=== PATIENT | male | born 1985 | race Caucasian/White ===

== ENCOUNTER 2016-09-11 11:03 | Emergency (ER) | payer SELFPAY ==
[~2016-09-11] VITALS: Ht 175.3 cm; Wt 122.5 kg
[2016-09-11 11:06] VITALS: BP 177/102; PULSE 128; RESP 24; TEMP 98.1; O2SAT 99
[2016-09-11] MEDS ORDERED: METO25TA3 PO ×2 (11:22→11:59)
--- NOTE | 2016-09-11 11:58 | PD ---
HPI Chief Complaint: Oral / Dental Pain or Problem Time Seen by Provider: 11:46 Travel History International Travel<30 days: No Contact w/Intl Traveler<30days: No Traveled to known affect area: No History of Present Illness HPI 31-year-old male presents for is part with worsening left facial and jaw pain over the past week and a half. Patient denies any fever, chills, rash , or other symptoms. He has no sore throat. He has no sensitivity to hot and cold with his dental issues. He has no difficulty swallowing. Patient has history of TMJ in the past. Patient states his pain is worse with opening his mouth wide, chilling, and it at night. He's tried [id number]-[id number] medications without improvement. He states his pain is 8 out of 10 currently. He is allergic to penicillin. [facility] Social History Alcohol Use: Yes Tobacco Use: No Substance Use: No Allergies-Medications (Allergen,Severity, Reaction): Coded Allergies: Penicillin (Verified Allergy, Severe, Swelling, 09/11/16) Reported Meds & Prescriptions Reported Meds & Active Scripts Active Reported Metoprolol Tartrate 25 Mg Tab 25 Mg PO BID Review of Systems Except as stated in HPI: all other systems reviewed are Neg General / Constitutional: No: Fever Eyes: No: Visual changes HENT: Positive: Dental Difficulties, No: Headaches Cardiovascular: No: Chest Pain or Discomfort Respiratory: No: Shortness of Breath Gastrointestinal: No: Abdominal Pain Genitourinary: No: Dysuria Musculoskeletal: No: Pain Skin: No Rash Neurologic: No: Weakness Psychiatric: No: Depression Endocrine: No: Polydipsia Hematologic/Lymphatic: No: Easy Bruising Physical Exam Narrative GENERAL: Patient appears in no acute distress. SKIN: Warm and dry. Normal color. Normal turgor. HEAD: Atraumatic. Normocephalic. Patient has tender left TMJ with audible and palpable click. This reproduces his symptoms. EYES: Pupils equal and round. No scleral icterus. No injection or drainage. ENT: No nasal bleeding or discharge. Mucous membranes pink and moist. Teeth are in good repair. Pharynx is normal. No erythema or swelling. Uvula is midline. No obvious signs of dental abscess noted. NECK: Trachea midline. Supple and nontender without significant lymphadenopathy. CARDIOVASCULAR: Regular rate and rhythm. RESPIRATORY: No accessory muscle use. Clear to auscultation. Breath sounds equal bilaterally. MUSCULOSKELETAL: Extremities without clubbing, cyanosis, or edema. No obvious deformities. NEUROLOGICAL: Awake and alert. No obvious cranial nerve deficits. Motor grossly within normal limits. Five out of 5 muscle strength in the arms and legs. Normal speech. PSYCHIATRIC: Appropriate mood and affect; insight and judgment normal. Data Data Last Documented VS Vital Signs Date Time Temp Pulse Resp B/P Pulse Ox O2 Delivery O2 Flow Rate FiO2 09/11/16 11:06 98.1 128 24 177/102 99 Room Air MDM Medical Decision Making Medical Screen Exam Complete: Yes Emergency Medical Condition: Yes Differential Diagnosis Dental pain. Ear infection. TMJ. Early shingles. Narrative Course The patient is felt to have TMJ on the left. Patient is given prednisone 20 mg twice a day 7 days. Patient is given Flexeril 10 mg daily at bedtime #30. Patient is given tramadol 50 mg one every 6 hours when necessary pain #20. Patient is given a refill of his lisinopril 20 mg daily #30. Patient is given a refill of his metoprolol 25 mg daily #30. Patient is to follow-up with a local primary care physician and dentist as discussed. Diagnosis Primary Impression: Disorder of left temporomandibular joint Referrals: [facility] Dentist Patient Instructions: General Instructions, Temporomandibular Disorder (DC) Additional Instructions: The patient is felt to have TMJ on the left. Patient is given prednisone 20 mg twice a day 7 days. Patient is given Flexeril 10 mg daily at bedtime #30. Patient is given tramadol 50 mg one every 6 hours when necessary pain #20. Patient is given a refill of his lisinopril 20 mg daily #30. Patient is given a refill of his metoprolol 25 mg daily #30. Patient is to follow-up with a local primary care physician and dentist as discussed. Med/Other Pt SpecificInfo: Prescription(s) given Disposition: 01 DISCHARGE HOME Condition: Stable Roberto Carlos Tabor Sep 11, 2016 11:58
[2016-09-11] MEDS ORDERED: LISI-515 PO (11:59)
[2016-09-11] MEDS ORDERED: TRAM50TA PO (11:59)
[2016-09-11] MEDS ORDERED: CYCL1TAB29 PO (11:59)
[2016-09-11] MEDS ORDERED: PRED20 PO (11:59)
== END 2016-09-11 12:08 | disposition home or self-care (01) ==
LOC: NEPK 11:03
DX: M26.622 Arthralgia of left temporomandibular joint (principal); M26.69 Other specified disorders of temporomandibular joint
CPT/HCPCS: 99284

== ENCOUNTER 2017-03-14 16:04 | Emergency (ER) | payer SELFPAY ==
[~2017-03-14] VITALS: Ht 177.8 cm; Wt 120.3 kg
[~2017-03-14 16:04] MED LIST: CYCL10TA PO; LISI-515 PO; METO25TA3 PO; PRED20 PO; TRAM50TA PO
[2017-03-14 16:09] VITALS: BP 174/94; PULSE 103; RESP 16; TEMP 98.2; O2SAT 97
--- NOTE | 2017-03-14 16:20 | PD ---
HPI Chief Complaint: Cold / Flu Symptoms Time Seen by Provider: 16:14 Travel History International Travel<30 days: No Contact w/Intl Traveler<30days: No Traveled to known affect area: No History of Present Illness HPI Patient comes in complaining of cough and congestion that began approximately 2 days ago. Patient reports associated fever and some nausea. Patient reports taking Tylenol for this last dose was yesterday. Denies anything making it worse. Patient reports cough is occasionally productive with yellow phlegm. Denies any chest pain, shortness of breath, abdominal pain, vomiting, diarrhea, neck pain, or loss change in bowel or bladder. PFSH Past Medical History Hypertension: Yes Social History Alcohol Use: Yes Tobacco Use: Yes Substance Use: No Allergies-Medications (Allergen,Severity, Reaction): Coded Allergies: penicillin G (Unverified Allergy, Severe, Swelling, 03/14/17) Reported Meds & Prescriptions Reported Meds & Active Scripts Active Tessalon Perles (Benzonatate) 100 Mg Cap 200 Mg PO TID PRN Ventolin Hfa 18 GM Inh (Albuterol Sulfate) 90 Mcg/Act Aer 2 Puff INH Q4-6H PRN Review of Systems Except as stated in HPI: all other systems reviewed are Neg Physical Exam Narrative GENERAL: Well-developed, overly nourished, in no acute distress, and non-ill appearing. SKIN: Focused skin assessment warm and dry. HEAD: Atraumatic. Normocephalic. EYES: Pupils equal and round. EOMI. No scleral icterus. No injection or drainage. ENT: No nasal bleeding or discharge. Mucous membranes pink and moist. Tympanic membranes pearly piña bilaterally. Posterior pharynx nonerythematous without exudate. Uvula is midline. No tenderness to facial sinuses to palpation. NECK: Trachea midline. No cervical lymphadenopathy. Supple. No nuclear rigidity. CARDIOVASCULAR: Regular rate and rhythm. No murmur appreciated. RESPIRATORY: No accessory muscle use. No respiratory distress. Clear to auscultation. Breath sounds equal bilaterally. MUSCULOSKELETAL: No obvious deformities. No clubbing. No cyanosis. No edema. Full range of motion. NEUROLOGICAL: Awake and alert. No obvious cranial nerve deficits. Motor grossly within normal limits. Normal speech. PSYCHIATRIC: Appropriate mood and affect; insight and judgment normal. Data Data Last Documented VS Vital Signs Date Time Temp Pulse Resp B/P (MAP) Pulse Ox O2 Delivery O2 Flow Rate FiO2 03/14/17 16:09 98.2 103 16 174/94 (120) 97 Orders Orders Influenzae A/B Antigen (03/14/17 16:17) Chest, Single Ap (03/14/17 ) Ed Discharge Order (03/14/17 16:52) MDM Medical Decision Making Medical Screen Exam Complete: Yes Emergency Medical Condition: Yes Differential Diagnosis Influenza, pneumonia, bronchitis, URI, viral syndrome Narrative Course Patients symptom complex of cough and congestion is consistent with viral URI. The patient is non-ill appearing and is in no respiratory distress and comfortable. The patient moves air well and oxygen saturations are normal. There is no clinical evidence to suggest pneumonia at this time. Plan of care and management were discussed with the patient who agreed with plan. The patient was instructed to follow up with their physician and instructed to return if worsens, progressively worsening shortness of breath or difficulty breathing, persistent fever, chest pains or discomfort, inability to keep medication or fluids down with or without vomiting, or as needed. Patient in no obvious distress upon re-evaluation. All pertinent laboratory/ Radiology result(s) discussed with patient. Patient was asked if they wanted to speak to my attending, which the patient did not wish to do at this time. Any questions/concerns in reference to patient diagnosis/condition discussed and clarified prior to patient's discharge. Reinforced sheer importance of close follow up with patient's primary physician or primary care clinic. Instructed patient to return to ED immediately, if symptoms return/worsen. Patient showed understanding of above instructions. Further instructions and recommendations were detailed in discharge paperwork. Patient ambulated without difficulty out of ED at discharge. Diagnosis Primary Impression: Upper respiratory infection Qualified Codes: J06.9 - Acute upper respiratory infection, unspecified Referrals: [facility] Patient Instructions: Chronic Hypertension (ED), General Instructions, Upper Respiratory Infection (ED) Additional Instructions: Follow-up with your primary care physician next week for reevaluation. Take all medication as prescribed. Drink plenty of non-caffeinated and nonalcoholic fluids. Use [id number] Tylenol and/or appropriate as needed for pain and/ or fevers. Follow instructions on the packaging. Return to the emergency department if symptoms get worse. Med/Other Pt SpecificInfo: Prescription(s) given Scripts Benzonatate (Tessalon Perles) 100 Mg Cap 200 MG PO TID Y for COUGH, #30 CAP 0 Refills Prov: Terrance Acevedo MD 03/14/17 Albuterol 18 GM Inh (Ventolin Hfa 18 GM Inh) 90 Mcg/Act Aer 2 PUFF INH Q4-6H Y for COUGH, #1 INHALER 0 Refills Prov: Terrance Acevedo MD 03/14/17 Disposition: 01 DISCHARGE HOME Condition: Stable Chaparro Goel Mar 14, 2017 16:20
--- NOTE | 2017-03-14 16:30 | RADRPT ---
EXAM DATE/TIME: 03/14/2017 16:21 [place] COMPARISON: No previous studies available for comparison. INDICATIONS : Cough, and fever. MEDICAL HISTORY : SURGICAL HISTORY : None. ENCOUNTER: Initial ACUITY: 3 days PAIN SCORE: 5/10 LOCATION: Bilateral chest FINDINGS: A single view of the chest demonstrates the lungs to be symmetrically aerated without evidence of mas s, infiltrate or effusion. The cardiomediastinal contours are unremarkable. Osseous structures are intact. CONCLUSION: 1. No acute cardiopulmonary disease. Ernesto Singletary MD on March 14, 2017 at 16:28 Board Certified Radiologist. This report was verified electronically.
[2017-03-14] MEDS ORDERED: VENTAER INH (16:51)
[2017-03-14] MEDS ORDERED: BENZ100 PO (16:51)
== END 2017-03-14 17:12 | disposition home or self-care (01) ==
LOC: PHEFT 16:04
DX: J06.9 Acute upper respiratory infection, unspecified (principal); Z72.0 Tobacco use
CPT/HCPCS: 71010; 87804; 99284

== ENCOUNTER 2017-09-25 18:34 | Emergency (ER) | payer SELFPAY ==
[~2017-09-25] VITALS: Ht 177.8 cm; Wt 119.0 kg
[~2017-09-25 18:34] MED LIST changes: +BENZ100 PO; -CYCL10TA PO; -LISI-515 PO; -METO25TA3 PO; -PRED20 PO; -TRAM50TA PO; +VENTAER INH
[2017-09-25 18:59] VITALS: BP 169/87; PULSE 120; RESP 16; TEMP 99.2; O2SAT 97
[2017-09-25 19:30] LABS: BILIRUBIN, URINE NEG (NEG); BLOOD, URINE NEG (NEG); GLUCOSE,URINE NEG (NEG); KETONE, URINE TRACE mg/dL (NEG); NITRITE,URINE NEG (NEG); URINE COLOR YELLOW (YELLW/STRAW); URINE LEUKOCYTE ESTERASE NEG (NEG)
[2017-09-25 19:36] LABS: CALCIUM OXALATE CRYSTALS,URINE OCC /hpf; RBC, URINE 0-3 /hpf (0-3); SQUAMOUS EPITHELIAL CELL URINE 0-5 /hpf (0-5); WBC, URINE 0-2 /hpf (0-5)
[2017-09-25] MEDS ORDERED: ONDANSETRON ODT 4 MG TAB SL ONE (21:00)
[2017-09-25] MEDS ORDERED: HYDROmorphone HCL PF 2 MG/ML VIAL IV ONE (21:00)
[2017-09-25] MEDS ORDERED: SODIUM CHLOR 0.9% 1000 ML INJ 1,000 ML IV ONE (21:00)
--- NOTE | 2017-09-25 21:04 | PD ---
HPI Chief Complaint: Flank/Kidney Pain Time Seen by Provider: 20:51 Travel History International Travel<30 days: No Contact w/Intl Traveler<30days: No Traveled to known affect area: No History of Present Illness HPI This patient complains of left flank pain. Started at 10 AM. Duration is 11 hours. Severity is moderate to severe in nature. No injury. No radiation down his leg. No alleviate factors. No exacerbating factors. Denies neurologic complaint. No fever. He denies urinary complaint PFSH Past Medical History Hypertension: Yes (NO MEDS CURRENTLY/NO INSURANCE) Social History Alcohol Use: No Tobacco Use: Yes (04/03 PPD) Substance Use: No Allergies-Medications (Allergen,Severity, Reaction): Coded Allergies: penicillin G (Unverified Allergy, Severe, Swelling, 09/25/17) Reported Meds & Prescriptions Reported Meds & Active Scripts Active Tramadol (Tramadol HCl) 50 Mg Tab 50 Mg PO Q6H PRN Tessalon Perles (Benzonatate) 100 Mg Cap 200 Mg PO TID PRN Ventolin Hfa 18 GM Inh (Albuterol Sulfate) 90 Mcg/Act Aer 2 Puff INH Q4-6H PRN Review of Systems General / Constitutional: No: Fever Eyes: No: Visual changes HENT: No: Headaches Cardiovascular: No: Chest Pain or Discomfort Respiratory: No: Shortness of Breath Gastrointestinal: Positive: Nausea, No: Abdominal Pain Genitourinary: Positive: Flank Pain, No: Dysuria Musculoskeletal: No: Pain Skin: No Rash Neurologic: No: Weakness Psychiatric: No: Depression Endocrine: No: Polydipsia Hematologic/Lymphatic: No: Easy Bruising Physical Exam Narrative GENERAL: Well-nourished, well-developed patient with left flank pain . SKIN: Focused skin assessment reveals no rash and nodules. Skin is Warm and dry. HEAD: Atraumatic. Normocephalic. EYES: Pupils equal and round. No scleral icterus. No injection or drainage. ENT: No nasal bleeding or discharge. Mucous membranes pink and moist. NECK: Trachea midline. No JVD. CARDIOVASCULAR: Regular rate and rhythm. No murmur appreciated. Tachycardic 120 RESPIRATORY: No accessory muscle use. Clear to auscultation. Breath sounds equal bilaterally. GASTROINTESTINAL: Abdomen soft, non-tender, nondistended. Hepatic and splenic margins not palpable. MUSCULOSKELETAL: No obvious deformities. No clubbing. No cyanosis. No edema. No midline tenderness to the back. No CVA tenderness. No bruising. NEUROLOGICAL: Awake and alert. No obvious cranial nerve deficits. Motor grossly within normal limits. Normal speech. PSYCHIATRIC: Appropriate mood and affect; insight and judgment normal. Data Data Last Documented VS Vital Signs Date Time Temp Pulse Resp B/P (MAP) Pulse Ox O2 Delivery O2 Flow Rate FiO2 09/25/17 18:59 99.2 120 16 169/87 (114) 97 Orders Orders Urinalysis - C+S If Indicated (09/25/17 19:08) Sodium Chlor 0.9% 1000 Ml Inj (Ns 1000 M (09/25/17 21:00) Hydromorphone Pf Inj (Dilaudid Pf Inj) (09/25/17 21:00) Complete Blood Count With Diff (09/25/17 21:00) Basic Metabolic Panel (Bmp) (09/25/17 21:00) Ct Abd/Pel W/O Iv Contrast (09/25/17 ) Iv Access Insert/Monitor (09/25/17 21:00) Ondansetron Odt (Zofran Odt) (09/25/17 21:00) Labs Laboratory Tests Test 09/25/17 18:47 09/25/17 21:17 Urine Color YELLOW Urine Turbidity CLEAR Urine pH 6.0 Urine Specific Spencer 1.020 Urine Protein TRACE mg/dL Urine Glucose (UA) NEG mg/dL Urine Ketones TRACE mg/dL Urine Occult Blood NEG Urine Nitrite NEG Urine Bilirubin NEG Urine Urobilinogen 0.2 MG/DL Urine Leukocyte Esterase NEG Urine RBC 0-3 /hpf Urine WBC 0-2 /hpf Urine Squamous Epithelial Cells 0-5 /hpf Urine Calcium Oxalate Crystals OCC /hpf Urine Bacteria NONE /hpf Microscopic Urinalysis Comment CULT NOT INDICATED White Blood Count 16.0 TH/MM3 Red Blood Count 5.32 MIL/MM3 Hemoglobin 15.8 GM/DL Hematocrit 46.8 % Mean Corpuscular Volume 88.0 FL Mean Corpuscular Hemoglobin 29.7 PG Mean Corpuscular Hemoglobin Concent 33.7 % Red Cell Distribution Width 13.9 % Platelet Count 228 TH/MM3 Mean Platelet Volume 8.9 FL Neutrophils (%) (Auto) 67.9 % Lymphocytes (%) (Auto) 20.0 % Monocytes (%) (Auto) 7.4 % Eosinophils (%) (Auto) 2.1 % Basophils (%) (Auto) 2.6 % Neutrophils # (Auto) 10.9 TH/MM3 Lymphocytes # (Auto) 3.2 TH/MM3 Monocytes # (Auto) 1.2 TH/MM3 Eosinophils # (Auto) 0.3 TH/MM3 Basophils # (Auto) 0.4 TH/MM3 CBC Comment AUTO DIFF Differential Comment AUTO DIFF CONFIRMED Platelet Estimate NORMAL Platelet Morphology Comment NORMAL Red Cell Morphology Comment NORMAL Blood Urea Nitrogen 17 MG/DL Creatinine 1.00 MG/DL Random Glucose 98 MG/DL Calcium Level 8.8 MG/DL Sodium Level 141 MEQ/L Potassium Level 3.8 MEQ/L Chloride Level 108 MEQ/L Carbon Dioxide Level 23.8 MEQ/L Anion Gap 9 MEQ/L Estimat Glomerular Filtration Rate 86 ML/MIN [facility] Medical Decision Making Medical Screen Exam Complete: Yes Emergency Medical Condition: Yes Medical Record Reviewed: Yes Differential Diagnosis Kidney stone, sciatica, UTI, lumbar strain Narrative Course I have reviewed the patient's electronic medical record. IV placed and labs sent I gave him 1 L normal saline IV bolus as well as a Zofran dose and pain injection Urinalysis is clean CBC and metabolic studies are normal CT of abdomen pelvis shows tiny nonobstructing stones which are incidental findings. Etiology is unclear of his pain. Could be sciatica or mechanical issue. He is improved on recheck Diagnosis Primary Impression: Acute left flank pain Additional Instructions: The patient was advised to follow up with their physician and return if they worsen. The patient was warned about potential sedation for the medications they will receive on prescription. Med/Other Pt SpecificInfo: Prescription(s) given Scripts Tramadol (Tramadol) 50 Mg Tab 50 MG PO Q6H Y for PAIN, #12 TAB 0 Refills Prov: Gonzales Pritchard MD 09/25/17 Disposition: 01 DISCHARGE HOME Condition: Stable Gonzales Pritchard MD Sep 25, 2017 21:04
[2017-09-25 21:32] LABS: AUTOMATED NEUTROPHIL # 10.9 TH/MM3 (1.8-7.7); BASOPHIL # 0.4 TH/MM3 (0-0.2); BASOPHIL % 2.6 % (0.0-2.0); EOSINOPHIL # 0.3 TH/MM3 (0-0.4); EOSINOPHIL % 2.1 % (0.0-4.0); HEMATOCRIT 46.8 % (39.0-51.0); HEMOGLOBIN 15.8 GM/DL (13.0-17.0); LYMPHOCYTE # 3.2 TH/MM3 (1.0-4.8); MEAN CORPUSCULAR HEMOGLOBIN 29.7 PG (27.0-34.0); MEAN CORPUSCULAR HGB CONC 33.7 % (32.0-36.0); MEAN PLATELET VOLUME 8.9 FL (7.0-11.0); MONO % 7.4 % (0.0-8.0); MONOCYTE # 1.2 TH/MM3 (0-0.9); NEUT % 67.9 % (16.0-70.0); PLATELET COUNT 228 TH/MM3 (150-450); RED BLOOD COUNT 5.32 MIL/MM3 (4.50-5.90); RED CELL DISTRIBUTION WIDTH 13.9 % (11.6-17.2)
--- NOTE | 2017-09-25 21:43 | RADRPT ---
EXAM DATE: 09/25/2017 9:33 PM EDT AGE/SEX: 32 years / Male INDICATIONS: Left flank pain. CLINICAL DATA: This is the patient's initial encounter. Patient reports that signs and symptoms have been present for 1 day and indicates a pain score of 9/10. MEDICAL/SURGICAL HISTORY: Hypertension. None. RADIATION DOSE: 22.67 CTDI (mGy) COMPARISON: No prior exams available for comparison. TECHNIQUE: Multiple contiguous axial images were obtained through the abdomen. Images were obtained using multiple row detector helical technique. Using automated exposure control and adjustment of the mA and/or kV according to patient size, radiation dose was kept as low as reasonably achievable to o btain optimal diagnostic quality images. DICOM format image data is available electronically for rev iew and comparison. FINDINGS: Right kidney/ureter: The examination demonstrates a 2 mm stone within the collecting system. There is no hydronephrosis. The right ureter is followed throughout its course and is unremarkable in appeara nce. Left kidney/ureter: The left kidney is normal in size. There is a single 1 mm nonobstructing stone se en. The left ureter is followed throughout its course and is unremarkable in appearance. Bladder: No stones are identified within the bladder. CT source data: The limited portion of lung base visualized is clear. The portions of liver and splee n visualized are unremarkable. The pancreas and adrenal glands are intact. No free air free fluid is seen. There is no retroperitoneal adenopathy. The visualized loops of small and large bowel are unrem arkable. There is no free fluid within the pelvis. The visualized bony structures are grossly intact. CONCLUSION: 1. There is a 2 mm nonobstructing stone in the collecting system of the right kidney. 2. There is a 1 mm nonobstructing stone in the collecting system of the left kidney. 3. No definite abnormality to explain the patient's left flank pain is identified. Electronically signed by: Higinio Hayes MD 09/25/2017 9:42 PM EDT
[2017-09-25 21:46] LABS: BICARBONATE 23.8 MEQ/L (21.0-32.0); CALCIUM 8.8 MG/DL (8.5-10.1)
[2017-09-25] MEDS ORDERED: TRAM50TA PO (22:13)
[2017-09-25 22:24] VITALS: BP 132/74; TEMP 98.9
== END 2017-09-25 22:25 | disposition home or self-care (01) ==
LOC: PHED 18:34
DX: R10.9 Unspecified abdominal pain (principal); F17.200 Nicotine dependence, unspecified, uncomplicated
CPT/HCPCS: 74176; 80048; 81001; 85025; 96361; 96374; 99284; J1170; J7030